=== PATIENT | male | born 1975 | race Hispanic/Latino ===

== ENCOUNTER 2016-10-05 07:45 | Day surgery (SDC) | payer OTHER ==
[2016-09-19 09:16] VITALS: BMI 30.1
[2016-10-05] MEDS ORDERED: Lidocaine 1% w Epi 1:100,000 Inj ONE (08:26)
[2016-10-05] MEDS ORDERED: Lactated Ringer's 1,000 ML IV ONE ×2 (09:24→11:30)
[2016-10-05] MEDS ORDERED: Midazolam 2 MG/2 ML VIAL ONE ×2 (09:28→09:40)
[2016-10-05] MEDS ORDERED: Propofol 10 mg/ml Inj (20 ML) ONE ×2 (09:28→12:29)
[2016-10-05] MEDS ORDERED: ePHEDrine 50 mg/ml Inj ONE (10:21)
[2016-10-05] MEDS ORDERED: Rocuronium 10 mg/ml (5 ml) ONE (10:21)
[2016-10-05] MEDS ORDERED: Phenylephrine 10 mg/ml Inj ONE (10:21)
[2016-10-05] MEDS ORDERED: Esmolol 100 mg/10ml Inj IV ONE (10:24)
[2016-10-05] MEDS ORDERED: ceFAZolin IV 1 gm in Dextrose 100 ML IVPB ONE (11:05)
[2016-10-05] MEDS ORDERED: Morphine 4 MG/ML VIAL ONE (12:33)
[2016-10-05] MEDS ORDERED: Oxycodone/Acetaminophen 5/325 mg Tab PO PRN (13:05)
--- NOTE | 2016-10-05 13:05 | PCM.SURG1 ---
Surgeon's Initial Post Op Note - Surgeon's Notes Surgeon: Julia Powers MD Welcome Wagon Hostess: Austyn Muhammad PA-C Type of Anesthesia: General Endo Anesthesia Administered By: Dr. Sofia Pre-Operative Diagnosis: Right hip labral tear, pincer deformity Operative Findings: same Post-Operative Diagnosis: same Operation Performed: Right hip arthroscopic labral repair, acetabuloplasty, synovectomy Specimen/Specimens Removed: none Estimated Blood Loss: EBL {In ML}: 10 Blood Products Given: N/A Drains Used: No Drains Post-Op Condition: Fair Date of Surgery/Procedure: 10/05/16 Time of Surgery/Procedure: 13:05
[2016-10-05] MEDS: HYDROmorphone 0.5 mg/0.5 ml ISec IVP PRN ×4 (13:10→13:55)
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
[2016-10-05 16:40] VITALS: RESP 16
--- NOTE | 2016-10-05 16:46 | RAD ---
PROCEDURE: Fluoroscopy up to 1 hr. HISTORY: RIGHT HIP LABRAL TEAR,SYNOVITIS COMPARISON: None TECHNIQUE: Standard protocol for this study/examination. FINDINGS: Total fluoroscopic time (continuous mode) utilized during the procedure: 36.2 seconds IMPRESSION: Less than 1 hr fluoroscopic time utilized during performance of the procedure.
[2016-10-05 17:13] VITALS: BP 139/87; PULSE 67; TEMP 97.9; O2SAT 99
== END 2016-10-05 16:10 | disposition home or self-care (01) ==
LOC: C.SDS 07:45
PROVIDERS: ATTEND Student in an Organized Health Care Education/Training Program
DX: S73.191A Other sprain of right hip, initial encounter (principal); V49.88XA Car occupant (driver) (passenger) injured in other specified transport accidents, initial encounter; M65.9 Synovitis and tenosynovitis, unspecified; M94.251 Chondromalacia, right hip
CPT/HCPCS: 29915; J0171; J0690; J1170; J2250; J2270; J2370; J2704; J3010; J7120